=== PATIENT | female | born 1945 | race Caucasian/White ===

== ENCOUNTER 2017-12-19 08:18 | Emergency (ER) | payer MEDICARE, OTHER ==
[~2017-12-19] VITALS: Ht 157.5 cm; Wt 58.1 kg
[2017-12-19] MEDS ORDERED: LISI5 PO (08:35)
[2017-12-19] MEDS ORDERED: LEVSOD75 PO (08:35)
[2017-12-19] MEDS ORDERED: Norco 5-325 Ta1 EACH PO (09:04)
[2017-12-19] MEDS ORDERED: IBUP600 PO (09:04)
== END 2017-12-19 09:18 | disposition home or self-care (01) ==
LOC: ER 08:18
DX: S92.352A Displaced fracture of fifth metatarsal bone, left foot, initial encounter for closed fracture (principal); S92.152A Displaced avulsion fracture (chip fracture) of left talus, initial encounter for closed fracture; Z79.899 Other long term (current) drug therapy; W10.9XXA Fall (on) (from) unspecified stairs and steps, initial encounter
CPT/HCPCS: 29515; 73562-RT; 73610; 73630; 99283

== ENCOUNTER 2021-01-01 09:10 | Day surgery (SDC) | payer MEDICARE, OTHER ==
[~2021-01-01] VITALS: Ht 165.1 cm; Wt 60.4 kg
[~2021-01-01 09:10] MED LIST: COMBIGAN 0.2%-0.5 ML BOTHEYES; DORZOPSO BOTHEYES; GABA100 PO; IBUP600 PO; L-Lysine500 M1 PO; LEVSOD75 PO; LISI5 PO; MERIBIN5 MG PO; Norco 5-325 Ta1 EACH PO; VITAMIN D310 MC4 PO
--- NOTE | 2021-01-01 10:26 | NUR ---
Ambulatory in Day Surgery History, Chart, Medications and Allergies reviewed before start of procedure.Patient states colon prep results clear.
--- NOTE | 2021-01-01 10:30 | NUR ---
01/01/21 1030 Brad Adler History, Chart, Medications and Allergies reviewed before start of procedure.MONITOR INTACT WITH CONTINUOUS PULSE OXIMETRY AND INTERMITTENT BP.3-LEAD EKG REVIEWED WITH PHYSICIAN PRIOR TO START OF PROCEDURE.O2 VIA N/C INTACT THROUGHOUT SEDATION/PROCEDURE. PATIENT DETERMINED TO BE ASA APPROPRIATE FOR PROPOFOL SEDATION PRIOR TO START OF PROCEDURE BY DR. OLGUIN.
--- NOTE | 2021-01-01 11:29 | NUR ---
DISCHARGE SUMMARY PT A&OX4, VSS, REMBERTO PO H2O, IV DC'D. LEFT FLOOR VIA WC WITH DC VOLUNTEER WITH DC INSTRUCTIONS. Patient up to Ambulate independently. Gait steady. Discharge instructions reviewed with patient. Patient verbalizes understanding. Copy given to patient to take home.
== END 2021-01-01 11:27 | disposition home or self-care (01) ==
LOC: ORSCMMR 09:10 → ORD 10:00 → ORSCMMR 11:27
PROVIDERS: Internal Medicine Gastroenterology
PROC: 0DBN8ZX Excision of Sigmoid Colon, Via Natural or Artificial Opening Endoscopic, Diagnostic (ICD-10-PCS; principal; 2021-01-01 10:00)
PROC: 0W3P8ZZ Control Bleeding in Gastrointestinal Tract, Via Natural or Artificial Opening Endoscopic (ICD-10-PCS; principal; 2021-01-01 10:00)
PROC: 0DBL8ZX Excision of Transverse Colon, Via Natural or Artificial Opening Endoscopic, Diagnostic (ICD-10-PCS; principal; 2021-01-01 10:00)
DX: Z12.11 Encounter for screening for malignant neoplasm of colon (principal); Z86.010 Personal history of colon polyps; K63.5 Polyp of colon; D12.3 Benign neoplasm of transverse colon; K64.8 Other hemorrhoids; K64.4 Residual hemorrhoidal skin tags; K55.21 Angiodysplasia of colon with hemorrhage; E03.9 Hypothyroidism, unspecified; I10 Essential (primary) hypertension; Z79.899 Other long term (current) drug therapy
CPT/HCPCS: 88305; J2704; J7120

== ENCOUNTER 2022-04-07 16:21 | Emergency (ER) | payer MEDICARE, OTHER ==
[~2022-04-07] VITALS: Ht 162.6 cm; Wt 59.9 kg
== END 2022-04-07 19:04 | disposition home or self-care (01) ==
LOC: ER 16:21
DX: S82.65XA Nondisplaced fracture of lateral malleolus of left fibula, initial encounter for closed fracture (principal); I10 Essential (primary) hypertension; E03.9 Hypothyroidism, unspecified; X50.1XXA Overexertion from prolonged static or awkward postures, initial encounter; Z87.891 Personal history of nicotine dependence; Z79.899 Other long term (current) drug therapy
CPT/HCPCS: 73562-LT; 73610; A9270

== ENCOUNTER 2025-08-24 13:18 | Emergency (ER) | payer MEDICARE, OTHER ==
[~2025-08-24] VITALS: Ht 160 cm; Wt 55.3 kg
[2025-08-24 13:57] VITALS: BP 109/74
[2025-08-24 15:05] LABS: Alanine Aminotransfer (ALT/SGP 22.0 U/L (12-78); Albumin, Blood 2.8 g/dL (3.4-5.0); Albumin/Globulin Ratio 1.2 (0.8-1.8); Anion Gap 7.0 mmol/L (3-11); Aspartate Aminotrans (AST/SGOT 21.0 U/L (12-37); Bilirubin, Total 0.6 mg/dL (0.1-1.0); Blood Urea Nitrogen 19.0 mg/dL (8-24); CO2, Blood 22.0 mmol/L (21-32); Calcium, Blood 7.9 mg/dL (8.5-10.1); Chloride, Blood 114.0 mmol/L (98-108); Creatinine, Blood 0.61 mg/dL (0.40-1.00); Globulin, Blood 2.4 g/dL (2.2-4.0); Glucose, Blood 114.0 mg/dL (70-99); Potassium, Blood 4.3 mmol/L (3.5-5.5); Sodium, Blood 139.0 mmol/L (136-145); Total Protein, Blood 5.2 g/dL (6.4-8.2)
== END 2025-08-24 15:19 | disposition left against medical advice (07) ==
LOC: ER 13:18
PROVIDERS: Physician Assistant
DX: R42 Dizziness and giddiness (principal)
CPT/HCPCS: 80053; 82947; 93005; 93010; 99284-25